=== PATIENT | female | born 1950 | race Caucasian/White ===

== ENCOUNTER 2022-04-13 13:12 | Emergency (ER) | payer OTHER, SELFPAY ==
[2022-04-13 13:28] VITALS: BP 148/67; PULSE 71; RESP 18; TEMP 36.4; O2SAT 99
--- NOTE | 2022-04-13 13:43 | ED.URI ---
HPI - URI/Sore Throat General Chief Complaint: Upper Respiratory Infection Stated Complaint: covid + Time Seen by Provider: 04/13/22 13:33 Source: patient Mode of arrival: ambulatory Limitations: no limitations History of Present Illness HPI Narrative: Patient presents today requesting an antiviral medication for COVID-19. She tested positive at home yesterday and symptoms began 3 days ago. She was exposed by her granddaughter 4 days ago. Symptoms include body aches, fever up to 100, fatigue, congestion, rhinorrhea, headache, and mild cough. Denies shortness of breath or chest pain. She has been taking Tylenol and ibuprofen with mild relief. Related Data Home Medications Medication Instructions Recorded Confirmed levothyroxine 100 mcg capsule 100 mcg PO DAILY 12/13/20 04/13/22 multivitamin 1 tablet PO DAILY 12/13/20 04/13/22 oxybutynin chloride 5 mg tablet 5 mg PO DAILY PRN Urinary Retention 12/13/20 04/13/22 lorazepam 0.5 mg tablet 0.5 mg PO PRN PRN Anxiety 04/13/22 04/13/22 Allergies Allergy/AdvReac Type Severity Reaction Status Date / Time No Known Allergies Verified 04/13/22 13:14 Review of Systems Review of Systems: CONSTITUTIONAL: + Fatigue, body aches, fever, chills EYES: Denies visual changes, redness, or discharge. ENT: + Congestion, rhinorrhea CARDIOVASCULAR: Denies chest pain, palpitations, or edema. RESPIRATORY: Denies dyspnea.+ Cough GASTROINTESTINAL: Denies abdominal pain, nausea, vomiting, or diarrhea. GENITOURINARY: Denies dysuria or hematuria. SKIN: Denies rash, itching, or wounds. MUSCULOSKELETAL: Denies back pain, joint pain, or myalgia. NEUROLOGIC: Denies numbness, tingling, or weakness.+ Mild headache PSYCH: Denies depression or anxiety. [facility] Past Medical History Medical History Hypothyroidism Vaginal delivery x2 Family History Family History Father Cerebrovascular accident Family history of pulmonary embolism, Onset Age: 84 Patient's father is Social History Social History Smoking status: Former smoker Second hand tobacco smoke exposure: No Smoking end date: 08/20/88 Alcohol intake: current Substance use: unknown Comments At time of signature, I have reviewed and agree with nursing past medical, surgical, social and family history unless otherwise noted. Please see nursing chart for further information. There is no relevant family history pertinent to the presenting complaint Exam Narrative: GENERAL: Well-appearing, well-nourished, and in no acute distress. HEAD: Normocephalic, atraumatic. EYES: EOMI. No redness or drainage. Conjunctivae normal. ENT: Mucous membranes pink and moist. Nares congested. No rhinorrhea. TMs normal bilaterally. Throat normal. Uvula midline. NECK: Normal AROM. Supple. No lymphadenopathy. CHEST: No respiratory distress. Clear to auscultation. HEART: Regular rate and rhythm. No murmur appreciated. Normal peripheral pulses. EXTREMITIES: Normal range of motion. No edema. SKIN: Warm, dry, no rash. Capillary refill normal. Normal skin turgor. NEURO: No focal deficits. Alert and oriented x3. Gait steady. PSYCH: Normal affect. No signs of depression or anxiety. Course Course Level of Care: Express Care Visit Vital Signs Vital signs: Vital Signs Temperature 97.6 F 04/13/22 13:28 Pulse Rate 71 04/13/22 13:28 Respiratory Rate 18 04/13/22 13:28 Blood Pressure 148/67 H 04/13/22 13:28 Pulse Oximetry 99 04/13/22 13:28 Oxygen Delivery Room Air 04/13/22 13:28 Temperature 97.6 F 04/13/22 13:28 Pulse Rate 71 04/13/22 13:28 Respiratory Rate 18 04/13/22 13:28 Blood Pressure 148/67 H 04/13/22 13:28 Pulse Oximetry 99 04/13/22 13:28 Oxygen Delivery Room Air 04/13/22 13:28 Reviewed. Pt has be
== END 2022-04-13 13:49 | disposition home or self-care (01) ==
PROVIDERS: Emergency Provider Nurse Practitioner; PCP Physician Assistant
DX: U07.1 COVID-19 (principal); E03.9 Hypothyroidism, unspecified; Z87.891 Personal history of nicotine dependence
CPT/HCPCS: 99213; G0463

== ENCOUNTER 2024-02-19 08:54 | Emergency (ER) | payer OTHER, SELFPAY ==
[2024-02-19 09:04] VITALS: BP 147/104; PULSE 77; RESP 16; TEMP 37.1; O2SAT 99
--- NOTE | 2024-02-19 09:04 | ED.FEMALEGU ---
HPI - Female Genitourinary General Chief complaint: Urogenital-Female Stated complaint: uti symptoms Time Seen by Provider: 02/19/24 09:05 Source: patient Mode of arrival: ambulatory Limitations: no limitations History of Present Illness HPI Narrative: is a 73-year-old female patient presenting to the clinic today with complaints of possible urinary tract infection. She reports symptoms started on with urine frequency. Noticed on Sunday that her urine became cloudy. She is also reporting increase in back pain (has herniated disc) and pressure in the pelvis. Rates her pain currently a 5/10. Denies any known fever but has had some chills. Related Data Home Medications Medication Instructions Recorded Confirmed levothyroxine 100 mcg capsule 100 mcg PO DAILY 12/13/20 02/19/24 multivitamin 1 tablet PO DAILY 12/13/20 02/19/24 lorazepam 0.5 mg tablet 0.5 mg PO PRN PRN Anxiety 04/13/22 02/19/24 losartan 25 mg tablet 25 mg DIRECTED 02/19/24 02/19/24 omeprazole 20 mg capsule,delayed 20 mg DIRECTED 02/19/24 02/19/24 release Allergies Allergy/AdvReac Type Severity Reaction Status Date / Time No Known Allergies Verified 04/13/22 13:14 Review of Systems Review of Systems: Pertinent positives per HPI. Patient denies any fever, chills, rash, headache, visual changes, dizziness, cough, runny nose, sore throat, shortness of breath, chest pain, palpitations, nausea, vomiting, diarrhea, constipation, abdominal pain PMFSH Past Medical History Medical History Hypothyroidism Vaginal delivery x2 Family History Family History Father Cerebrovascular accident Family history of pulmonary embolism, Onset Age: 84 Patient's father is Social History Social History Smoking status: Former smoker Second hand tobacco smoke exposure: No Smoking end date: 08/20/88 Alcohol intake: current Substance use: unknown Comments At the time of my signature, I reviewed and agree with the nursing past medical, surgical, social, and family history. There is no relevant family history pertinent to the patient complaint. Exam Narrative: General: Well-developed, well nourished, in no apparent distress. Head: Normocephalic, atraumatic. Cardio: Regular rate and rhythm, s1 and s2 normal, no murmur appreciated. Resp: Clear to auscultation bilaterally, no rhonchi, rales, wheezing or rubs. Abdomen: Soft, pliable, bowel sounds present in all quadrants, tender to palpation over the suprapubic bladder, no organomegly, no CVAT tenderness. Course Course Emergency Course: Portions of this record may have been created with voice recognition software. Level of Care: Express Care Visit Vital Signs Vital signs: Vital signs reviewed MDM - Female Genitourinary MDM Narrative Medical decision making narrative: At the time of visit patient is resting comfortably on the exam table. Patient appears to be nontoxic. Labs: Urinalysis shows 3+ leukocytes, blood, nitrates, and protein. We will send urine for culture. Plan: I suspect patient has urinary tract infection-possible early pyelo. Will send in prescription for ciprofloxacin. Supportive measures were discussed with the patient and they voiced understanding discharge instructions and agrees to treatment plan. Return precautions reviewed Differential Diagnosis Differential diagnosis: Likely urinary tract infection, cystitis and other (Pyelonephritis) Discharge Plan Discharge Clinical Impression: Urinary tract infection Qualifiers: Urinary tract infection type: acute cystitis Hematuria presence: with hematuria Qualified Code(s): N30.01 - Acute cystitis with hematuria Patient Disposition: Home, Self-Care Condition: Stable Instructions: Antibiotic Form,
[2024-02-19 09:17] LABS: EDUAAPPEAR Cloudy; EDUABILI Negative; EDUABLOOD 2+; EDUACOLOR1 Yellow; EDUAGLUCOSE Negative; EDUAKETONE Negative; EDUALEUKO 3+; EDUANITRATE Positive; EDUAPROTEIN 2+; EDUASPGRAVITY 1.015; EDUAUROBILI 0.2
== END 2024-02-19 09:25 | disposition home or self-care (01) ==
PROVIDERS: Emergency Provider Nurse Practitioner Family; PCP Nurse Practitioner Family
DX: N30.01 Acute cystitis with hematuria (principal); B96.20 Unspecified Escherichia coli [E. coli] as the cause of diseases classified elsewhere; Z87.891 Personal history of nicotine dependence; E03.9 Hypothyroidism, unspecified
CPT/HCPCS: 81003; 87077; 87086; 87088; 87186; 99213; G0463

== ENCOUNTER 2024-08-28 11:48 | Emergency (ER) | payer OTHER, SELFPAY ==
[2024-08-28 11:55] VITALS: BP 152/64; PULSE 69; RESP 18; TEMP 36.4; O2SAT 99
--- NOTE | 2024-08-28 12:20 | ED_ITS ---
HPI - URI/Sore Throat General Chief Complaint: Upper Respiratory Infection Stated Complaint: headache / Sore throat / Bilateral Ear Pain History of Present Illness HPI Narrative: 73-year-old female presented for complaint of nasal congestion, sinus pressure, right ear pain, headache and cough. Onset 12 days. Denies shortness of breath, wheezing, nausea vomiting, fevers or lethargy. Using humidifier and [id number] medicines for symptoms. Related Data Home Medications ?Medication ?Instructions ?Recorded ?Confirmed ?Last Taken ?Type levothyroxine 100 mcg capsule 100 mcg PO DAILY 12/13/20 03/15/24 Unknown History multivitamin 1 tablet PO DAILY 12/13/20 03/15/24 Unknown History lorazepam 0.5 mg tablet 0.5 mg PO PRN PRN Anxiety 04/13/22 03/15/24 Unknown History losartan 25 mg tablet 25 mg DIRECTED 02/19/24 03/15/24 Unknown History omeprazole 20 mg capsule,delayed 20 mg DIRECTED 02/19/24 03/15/24 Unknown History release Allergies Allergy/AdvReac Type Severity Reaction Status Date / Time Penicillins AdvReac Severe Fatigued Verified 08/28/24 12:18 Review of Systems Review of Systems: CONSTITUTIONAL: Denies body aches, fever, chills, or sweats. EYES: Denies visual changes, redness, or discharge. ENT: reports rhinorrhea, congestion, otalgia. CARDIOVASCULAR: Denies chest pain, palpitations, or edema. RESPIRATORY: Denies dyspnea. GASTROINTESTINAL: Denies abdominal pain, nausea, vomiting, or diarrhea. SKIN: Denies rash, itching, or wounds. MUSCULOSKELETAL: Denies back pain, joint pain, or myalgia. [facility] Past Medical History Medical History Vaginal delivery x2 Hypothyroidism Family History Family History Father Cerebrovascular accident Family history of pulmonary embolism, Onset Age: 84 Patient's father is Social History Social History Smoking status: Former smoker Second hand tobacco smoke exposure: No Smoking end date: 08/20/88 Alcohol intake: current Substance use: unknown Do You Feel Safe in your Home?: Yes Lack of Transportation: No Lack of Food: Never True Current Housing: I Have Housing Concerned About Future Housing: No Difficulty Paying Gas/Electric Bills: No Difficulty Paying for Meds: No Currently Unemployed: No Education: Associate Degree Difficulty w/ Childcare or Family Care: No Exam Narrative: GENERAL: well-appearing, no acute distress. EYES: conjunctivae clear ENT: Mucous membranes moist. Nasal congestion. Left TM pearly patterson with normal light reflex; Right TM unable to visualize due to cerumen. no tragal tenderness. Oropharynx not erythematous without lesions. No drooling, no hoarseness, no trismus, uvula midline. No tripod positioning, hot potato voice, or soft palate swelling. NECK: Supple. No lymphadenopathy CHEST: Clear to auscultation, breath sounds equal. No respiratory distress, speaks in full sentences. HEART: Regular rate and rhythm. No murmur heard. SKIN: Warm, dry, no rash. NEURO: Alert and oriented x3. Course Course Emergency Course: Patient is aware of diagnosis, understands and agrees to treatment plan. Anticipatory guidance given. Patient agrees to follow-up as directed and is aware of reasons to seek care at the emergency department. Portions of this record may have been created with voice recognition software Level of Care: Express Care Visit Vital Signs Vital signs: Vital Signs Temperature 97.5 F L 08/28/24 11:55 Pulse Rate 08/28/24 11:55 Respiratory Rate 18 08/28/24 11:55 Blood Pressure 152/64 H 08/28/24 11:55 Pulse Oximetry 99 08/28/24 11:55 Oxygen Delivery Room Air 08/28/24 11:55 Temperature 97.5 F L 08/28/24 11:55 Pulse Rate 69 08/28/24 11:55 Respiratory Rate 18 08/28/24 11:55 Blood Pressure 152/64 H 08/28/24 11:55 Pulse Oximetry 99 08/28/24 11:55 Oxygen Delivery Room Air 08/28/24 11:55 MDM - URI/Sore Throat MDM Narrative Medical decision making narrative: Discussed physical exam findings consistent with sinusitis. Advise supportive treatments. Patient is appropriate for outpatient treatment and follow-up. Differential Diagnosis Differential diagnosis: Likely upper respiratory infection, otitis media, sinusitis, viral infection and pharyngitis Discharge Plan Discharge Clinical Impression: Sinusitis Patient Disposition: Home, Self-Care Condition: Stable Instructions: Antibiotic Form, Rhinosinusitis (ED) Additional Instructions: Take antibiotic as directed Recommend Flonase spray and Zyrtec (or Claritin/Kimberly) over the counter Cough syrup may cause drowsiness; avoid driving or take it at night time. Tylenol 1000mg every 8 hours as needed for pain Symptomatic treatment includes: rest, fluids, and increase humidity of the air at home. Follow up with your primary care provider in 1 week. Go to the ER for worsening symptoms or concerns. Patient Language: Korean Prescriptions: New doxycycline hyclate 100 mg tablet 100 mg PO BID 7 Days Qty: 14 0RF No Action lorazepam 0.5 mg tablet 0.5 mg PO PRN PRN (Reason: Anxiety) losartan 25 mg tablet 25 mg DIRECTED omeprazole 20 mg capsule,delayed release(DR/EC) 20 mg DIRECTED multivitamin Tablet 1 tablet PO DAILY levothyroxine 100 mcg capsule 100 mcg PO DAILY Follow-up/Referrals: Husam,Erika Navarrtee APRN [Primary Care Provider] - Time of Disposition: 12:28
== END 2024-08-28 12:31 | disposition home or self-care (01) ==
PROVIDERS: Emergency Provider Nurse Practitioner Family; PCP Nurse Practitioner Family
DX: J32.9 Chronic sinusitis, unspecified (principal); E03.9 Hypothyroidism, unspecified; Z87.891 Personal history of nicotine dependence
CPT/HCPCS: 99213; G0463